=== PATIENT | male | born 1950 | race Caucasian/White ===

== ENCOUNTER → 2020-11-08 | Outpatient (CLI) | payer MEDICARE, OTHER ==
[~2020-11-08] MED LIST: ASPI81CH4 PO; METF500T13 PO; SIMV40TA20 PO; TAMS1CAP17 PO; ZYLO300T6 PO
[2020-11-08 13:44] LABS: BASO % 0.6 % (0.0-1.0); EOS # 0.3 10^3/uL (0.0-0.5); EOS % 3.9 % (0.0-3.0); HEMATOCRIT 37.7 % (42.0-52.0); HEMOGLOBIN 13.1 g/dl (13.5-17.5); LYMPH # 1.2 10^3/uL (1.5-5.0); LYMPH % 18.5 % (24.0-44.0); MEAN CORPUSCULAR HEMOGLOBIN 32.3 pg (27.0-33.0); MEAN CORPUSCULAR HGB CONC 34.7 g/dl (32.0-36.5); MEAN CORPUSCULAR VOLUME 92.9 fl (80.0-96.0); MONO # 0.8 10^3/uL (0.0-0.8); MONO % 12.7 % (2.0-8.0); NEUTROPHILS # 4.3 10^3/uL (1.5-8.5); NEUTROPHILS % 64.1 % (36.0-66.0); PLATELET COUNT, AUTOMATED 261 10^3/uL (150-450); RED BLOOD COUNT 4.06 10^6/uL (4.30-6.10); WHITE BLOOD COUNT 6.6 10^3/uL (4.0-10.0)
[2020-11-08 13:57] LABS: INR 0.93; PROTHROMBIN TIME 12.6 SECONDS (12.5-14.3)
[2020-11-08 14:28] LABS: ALBUMIN 3.8 GM/DL (3.2-5.2); ALT/SGPT 280 U/L (12-78); BILIRUBIN,TOTAL 16.4 MG/DL (0.2-1.0); BLOOD UREA NITROGEN 23 MG/DL (7-18); CALCIUM LEVEL 8.8 MG/DL (8.8-10.2); CARBON DIOXIDE LEVEL 29 MEQ/L (21-32); CHLORIDE LEVEL 104 MEQ/L (98-107); CREATININE FOR GFR 1.01 MG/DL (0.70-1.30); GLOMERULAR FILTRATION RATE > 60.0 (>42); GLUCOSE, FASTING 128 MG/DL (70-100); POTASSIUM SERUM 4.2 MEQ/L (3.5-5.1); SODIUM LEVEL 136 MEQ/L (136-145)
[2020-11-09 10:52] LABS: HEPATITIS B SURFACE ANTIGEN NEGATIVE (NEGATIVE)
[2020-11-09 11:19] LABS: HEPATITIS C VIRUS ABY INDEX < 0.0 INDEX (<0.8)
[2020-11-09 11:20] LABS: HEPATITIS B CORE ANTIBODY IGM NEGATIVE (NEGATIVE)
[2020-11-09 12:42] LABS: HEPATITIS A ANTIBODY IGM NEGATIVE (NEGATIVE)
== END ==
LOC: M LAB 13:25
PROVIDERS: ATTEND Physician Assistant
DX: R17 Unspecified jaundice (principal)

== ENCOUNTER → 2020-11-09 | Outpatient (CLI) | payer MEDICARE, OTHER ==
[~2020-11-09] MED LIST changes: +GASTROGRAFIN SOLUTION 30ML (Q9963) As Ordered ONE; +ISOVUE-370 76% 100ML VIAL As Ordered ONE
--- NOTE | 2020-11-09 11:50 | REP ---
INDICATION: ELEVATED LFT'S JAUNDICE. COMPARISON: None. TECHNIQUE: Real-time sonographic evaluation of right upper quadrant performed. FINDINGS: The gallbladder is poorly distended. There appear to be echogenic foci in the wall of the gallbladder suggesting adenomyomatosis. No gallstones are visualized. There is no intrahepatic or extrahepatic biliary dilatation, common bile duct measures 5 mm in maximum diameter. The liver demonstrates homogeneous echotexture with no gross mass. A calcified granuloma is seen in the right lobe of the liver. The pancreas is not visualized due to overlying bowel gas. The right kidney demonstrates no hydronephrosis, with a normal size of 11.5 cm in length. No free fluid is seen. IMPRESSION: Gallbladder poorly distended. No gallstones are seen. Echogenic foci in the wall of the gallbladder suggests adenomyomatosis. No biliary dilatation or free fluid. <Electronically signed by Aiden Youssef > 11/09/20 [id number]
--- NOTE | 2020-11-09 13:17 | REP ---
INDICATION: ELEVATED LFT'S JAUNDICE. COMPARISON: 06/11/2013 the only prior TECHNIQUE: Helical CT of the abdomen. After the intravenous administration of 100 cc Isovue 370 and oral bowel preparatory contrast administration. FINDINGS: There is no change in the lung bases. The liver, gallbladder, spleen, pancreas, adrenal glands, and kidneys are essentially unchanged again seen to be within normal limits. The abdominal aorta and para-aortic regions are centrally unchanged and again seen to be within normal limits. The bowel loops and the mesenteries are within normal limits. There is no free fluid or free air. There is no evidence of a mass or adenopathy. The imaged osseous structures are stable. IMPRESSION: There is no evidence of acute disease. <Electronically signed by Dami Eli > 11/09/20 [id number]
== END ==
LOC: M RAD 10:57
PROVIDERS: ATTEND Physician Assistant
DX: K75.3 Granulomatous hepatitis, not elsewhere classified (principal); K82.8 Other specified diseases of gallbladder
CPT/HCPCS: 74160; 76705; Q9963; Q9967

== ENCOUNTER 2020-11-12 11:28 | Emergency (ER) | payer MEDICARE, OTHER ==
[~2020-11-12] VITALS: Ht 172.7 cm; Wt 75.9 kg
[2020-11-12] MEDS ORDERED: ZYLO300T6 PO (11:37)
[2020-11-12] MEDS ORDERED: METF500T13 PO (11:37)
[2020-11-12] MEDS ORDERED: SIMV40TA20 PO (11:37)
[2020-11-12] MEDS ORDERED: TAMS1CAP17 PO (11:37)
[2020-11-12] MEDS ORDERED: NS 1,000 ML IV ONE (12:50)
[2020-11-12 13:25] LABS: BASO # 0.1 10^3/uL (0.0-0.2); BASO % 0.7 % (0.0-1.0); EOS # 0.3 10^3/uL (0.0-0.5); EOS % 3.5 % (0.0-3.0); HEMATOCRIT 35.9 % (42.0-52.0); HEMOGLOBIN 12.1 g/dl (13.5-17.5); LYMPH % 14.3 % (24.0-44.0); MEAN CORPUSCULAR HEMOGLOBIN 31.7 pg (27.0-33.0); MEAN CORPUSCULAR HGB CONC 33.7 g/dl (32.0-36.5); MONO # 0.8 10^3/uL (0.0-0.8); MONO % 10.7 % (2.0-8.0); NEUTROPHILS # 5.1 10^3/uL (1.5-8.5); NEUTROPHILS % 70.5 % (36.0-66.0); PLATELET COUNT, AUTOMATED 322 10^3/uL (150-450); RED BLOOD COUNT 3.82 10^6/uL (4.30-6.10); WHITE BLOOD COUNT 7.2 10^3/uL (4.0-10.0)
[2020-11-12 13:34] LABS: INR 1.08; PROTHROMBIN TIME 14.2 SECONDS (12.5-14.3)
[2020-11-12] MEDS ORDERED: ASPI81CH4 PO (13:36)
[2020-11-12 13:58] LABS: ALBUMIN 3.4 GM/DL (3.2-5.2); ALT/SGPT 335 U/L (12-78); BILIRUBIN,TOTAL 20.8 MG/DL (0.2-1.0); CK-MB VALUE MASS 1.9 NG/ML (<3.6); CPK CREATINE PHOSPHOKINASE 90 U/L (39-308); MB/CK RELATIVE INDEX 2.11 (< OR =4); TOTAL PROTEIN 6.6 GM/DL (6.4-8.2); TROPONIN I < 0.02 NG/ML (< 0.10)
[2020-11-12 13:59] LABS: LIPASE 94 U/L (73-393)
[2020-11-12 19:19] VITALS: BP 128/61
--- NOTE | 2020-11-13 19:40 | ECGEPIP ---
[facility] - ED Test Date: 2020-11-12 Pat Name: DON VALDERRAMA Department: Room: - Gender: Male [employer]: ER : 1950 Requested By: BILL James PA-C Order Number: [id number] Reading MD: Helene Bui Measurements Intervals [place] Rate: 46 P: 67 GA: 242 QRS: -43 QRSD: 116 T: 35 QT: 490 QTc: 428 Interpretive Statements Sinus bradycardia with 1st degree AV block Left axis deviation Incomplete right bundle branch block No prior Electronically Signed on 11-13-2020 19:40:11 EDT by Helene Bui
== END 2020-11-12 19:23 | disposition short-term general hospital (02) ==
LOC: M ED 11:28
DX: R17 Unspecified jaundice (principal); E11.9 Type 2 diabetes mellitus without complications; R94.5 Abnormal results of liver function studies; I44.0 Atrioventricular block, first degree; R00.1 Bradycardia, unspecified; I45.19 Other right bundle-branch block; I10 Essential (primary) hypertension; E78.5 Hyperlipidemia, unspecified; M10.9 Gout, unspecified; J30.89 Other allergic rhinitis; Z79.82 Long term (current) use of aspirin; Z79.84 Long term (current) use of oral hypoglycemic drugs; Z79.899 Other long term (current) drug therapy

== ENCOUNTER → 2020-11-12 | Outpatient (REF) | payer MEDICARE, OTHER ==
[~2020-11-12] MED LIST changes: -GASTROGRAFIN SOLUTION 30ML (Q9963) As Ordered ONE; -ISOVUE-370 76% 100ML VIAL As Ordered ONE
[2020-11-12 21:41] LABS: HEPATITIS A ANTIBODY IGM NEGATIVE (NEGATIVE); HEPATITIS B CORE ANTIBODY IGM NEGATIVE (NEGATIVE); HEPATITIS B SURFACE ANTIGEN NEGATIVE (NEGATIVE); HEPATITIS C VIRUS ABY INDEX < 0.0 INDEX (<0.8)
== END ==
LOC: M LAB REF 16:11
PROVIDERS: ATTEND Internal Medicine
DX: R17 Unspecified jaundice (principal)

== ENCOUNTER 2020-11-17 15:26 | Emergency (ER) | payer MEDICARE, OTHER ==
[~2020-11-17] VITALS: Ht 172.7 cm; Wt 76.1 kg
[2020-11-17] MEDS ORDERED: BACITRACIN OINTMENT 30GM TUBE TOP STA (17:26)
[2020-11-17] MEDS ORDERED: AUGMENTIN 875 MG TAB PO ONE (17:30)
[2020-11-17] MEDS ORDERED: BACI500O21 TOP (17:34)
[2020-11-17] MEDS ORDERED: AUGM875T28 PO (17:34)
[2020-11-17 17:47] VITALS: BP 115/65
== END 2020-11-17 17:54 | disposition home or self-care (01) ==
LOC: M ED 15:26
DX: M79.621 Pain in right upper arm (principal); T81.49XA Infection following a procedure, other surgical site, initial encounter; Y92.9 Unspecified place or not applicable; Y93.9 Activity, unspecified; E11.9 Type 2 diabetes mellitus without complications; E78.5 Hyperlipidemia, unspecified; Z87.891 Personal history of nicotine dependence; Z79.82 Long term (current) use of aspirin; Z79.899 Other long term (current) drug therapy; J30.89 Other allergic rhinitis

== ENCOUNTER → 2021-04-09 | Outpatient (CLI) | payer MEDICARE, OTHER ==
[~2021-04-09] MED LIST changes: +AUGM875T28 PO; +BACI500O21 TOP
== END ==
LOC: M LABSMTC 11:59
PROVIDERS: ATTEND Family Medicine
DX: Z20.822 Contact with and (suspected) exposure to COVID-19 (principal)
CPT/HCPCS: C9803; U0003

== ENCOUNTER → 2021-10-20 | Outpatient (REF) | payer MEDICARE, OTHER | LOC: M LAB REF 12:08 | PROVIDERS: ATTEND Internal Medicine | DX: N40.0 Benign prostatic hyperplasia without lower urinary tract symptoms (principal); K86.1 Other chronic pancreatitis; R97.8 Other abnormal tumor markers ==

== ENCOUNTER → 2022-01-18 | Outpatient (CLI) | payer MEDICARE, OTHER | LOC: M PLAIMG 13:51 | PROVIDERS: ATTEND Internal Medicine Gastroenterology | DX: R93.5 Abnormal findings on diagnostic imaging of other abdominal regions, including retroperitoneum (principal); K86.89 Other specified diseases of pancreas ==

== ENCOUNTER → 2022-01-20 | Outpatient (REF) | payer MEDICARE, OTHER | LOC: M SFHCDERM 17:14 | PROVIDERS: ATTEND Nurse Practitioner Family | DX: C44.329 Squamous cell carcinoma of skin of other parts of face (principal) ==

== ENCOUNTER → 2022-04-22 | Outpatient (CLI) | payer MEDICARE, OTHER | LOC: M WUC 09:08 | PROVIDERS: ATTEND Internal Medicine | DX: R05.9 Cough, unspecified (principal); R09.89 Other specified symptoms and signs involving the circulatory and respiratory systems ==

== ENCOUNTER → 2022-12-02 | Outpatient (CLI) | payer MEDICARE, OTHER ==
[~2022-12-02] MED LIST changes: +GASTROGRAFIN SOLUTION 30ML As Ordered ONE; +ISOVUE-370 76% 100ML VIAL As Ordered ONE
== END ==
LOC: M RAD 11:12
PROVIDERS: ATTEND Internal Medicine
DX: R17 Unspecified jaundice (principal); Q45.3 Other congenital malformations of pancreas and pancreatic duct; I70.1 Atherosclerosis of renal artery
CPT/HCPCS: 74178; 86301; Q9963; Q9967

== ENCOUNTER → 2022-12-15 | Outpatient (REF) | payer MEDICARE, OTHER ==
[~2022-12-15] MED LIST changes: -GASTROGRAFIN SOLUTION 30ML As Ordered ONE; -ISOVUE-370 76% 100ML VIAL As Ordered ONE
[2022-12-15 13:11] LABS: INR 0.8; PROTHROMBIN TIME 11.3 SECONDS (12.5-14.5)
== END ==
LOC: M LAB REF 12:13
PROVIDERS: ATTEND Internal Medicine
DX: Q45.3 Other congenital malformations of pancreas and pancreatic duct (principal); R17 Unspecified jaundice

== ENCOUNTER → 2024-06-06 | Outpatient (CLI) | payer MEDICARE, OTHER | LOC: M RAD 10:28 | PROVIDERS: ATTEND Internal Medicine | DX: J98.11 Atelectasis (principal); J98.4 Other disorders of lung ==

== ENCOUNTER → 2024-06-20 | Outpatient (REF) | payer MEDICARE, OTHER | LOC: M SFHCDERM 17:42 | PROVIDERS: ATTEND Nurse Practitioner Family | DX: C44.41 Basal cell carcinoma of skin of scalp and neck (principal) ==

== ENCOUNTER → 2024-08-05 | Outpatient (CLI) | payer MEDICARE, OTHER | LOC: M RAD 13:08 | PROVIDERS: ATTEND Chiropractor | DX: M99.01 Segmental and somatic dysfunction of cervical region (principal); M47.812 Spondylosis without myelopathy or radiculopathy, cervical region; R29.890 Loss of height; M50.80 Other cervical disc disorders, unspecified cervical region ==

== ENCOUNTER → 2024-12-09 | Outpatient (CLI) | payer MEDICARE, OTHER | LOC: M WUC 11:06 | PROVIDERS: ATTEND Internal Medicine | DX: R05.9 Cough, unspecified (principal) ==

== ENCOUNTER → 2025-03-28 | Outpatient (CLI) | payer MEDICARE, OTHER ==
[2025-04-01 12:08] LABS: PSA % FREE 10.0 % (calc) (>25); PSA FREE 0.4 ng/mL; PSA TOTAL 4.1 ng/mL (< OR = 4.0)
== END ==
LOC: M PLALAB 09:59
PROVIDERS: ATTEND Nurse Practitioner Family
DX: R97.20 Elevated prostate specific antigen [PSA] (principal)

== ENCOUNTER → 2025-06-18 | Outpatient (REF) | payer MEDICARE, OTHER ==
[2025-06-20 16:20] LABS: INSULIN LEVEL 9.7 uIU/mL (<=18.4)
== END ==
LOC: M LAB REF 12:40
PROVIDERS: ATTEND Internal Medicine
DX: E16.2 Hypoglycemia, unspecified (principal)